=== PATIENT | male | born 1960 | race Caucasian/White ===

== ENCOUNTER 2016-09-08 19:13 | Emergency (ER) | payer MEDICARE, MEDICAID ==
[~2016-09-08] VITALS: Ht 185.4 cm; Wt 89.0 kg
[2016-09-08 19:15] VITALS: Ht 185.4 cm; Wt 89.0 kg
[2016-09-08] MEDS ORDERED: SOD CHLORIDE 0.9% 1,000 ML IV STA (19:37)
[2016-09-08] MEDS ORDERED: LORAZEPAM 2 MG INJ IV ONE (20:00)
[2016-09-08 20:20] LABS: POTASSIUM 3.9 mmol/L (3.5-5.1)
[2016-09-08 20:22] LABS: CREATININE 0.99 mg/dl (0.61-1.24)
[2016-09-08 20:23] LABS: CALCIUM 8.4 mg/dl (8.4-10.2)
[2016-09-08 21:43] LABS: ADD SCAN DIFF NO; BASOPHILS % 0.6 % (0.0-2.0); EOSINOPHILS % 0.1 % (0.0-7.0); HEMATOCRIT 47.8 % (42.0-52.0); HEMOGLOBIN 16.5 g/dl (14.0-18.0); LYMPHOCYTES # 4.7 10^3/ul (0.8-2.9); MEAN CORPUSCULAR HEMOGLOBIN 29.1 pg (29.0-33.0); MEAN CORPUSCULAR HGB CONC 34.5 g/dl (32.0-37.0); MEAN CORPUSCULAR VOLUME 84.3 fl (82.0-101.0); MEAN PLATELET VOLUME 9.8 fl (7.4-10.4); MONOCYTE # 0.3 10^3/ul (0.3-0.9); MONOCYTES % 4.9 % (0.0-11.0); NEUTROPHIL # 1.6 10^3/ul (1.6-7.5); NEUTROPHILS % 24.3 % (39.0-77.0); PLATELET COUNT 296 10^3/UL (140-415); RED BLOOD COUNT 5.67 10^6/ul (4.70-6.10); RED CELL DISTRIBUTION WIDTH 13.2 % (11.5-14.5); WHITE BLOOD COUNT 6.7 10^3/ul (4.8-10.8)
[2016-09-08 21:49] LABS: ALBUMIN 4.4 g/dl (3.3-4.9)
[2016-09-08 21:51] LABS: BILIRUBIN,INDIRECT 0.3 mg/dl (0-1.1); BILIRUBIN,TOTAL 0.3 mg/dl (0.2-1.3)
[2016-09-08 21:52] LABS: ALANINE AMINOTRANSFERASE 34 IU/L (13-69); ALKALINE PHOSPHATASE 136 IU/L (42-121); ASPARTATE AMINO TRANSFERASE 54 IU/L (15-46); TOTAL PROTEIN 7.7 g/dl (6.1-8.1)
[2016-09-08 21:56] LABS: ACETAMINOPHEN < 10.0 ug/ml (10.0-30.0); SALICYLATE < 1.0 mg/dl (5.0-30.0)
[2016-09-08 22:07] LABS: ADD UMIC YES; URINE BILIRUBIN (Dip) NEGATIVE (NEGATIVE); URINE BLOOD (Dip) TRACE (NEGATIVE); URINE COLOR LT. YELLOW (YELLOW); URINE GLUCOSE (Dip) NEGATIVE (NEGATIVE); URINE KETONES (Dip) NEGATIVE (NEGATIVE); URINE LEUKOCYTE ESTERASE (Dip) NEGATIVE (NEGATIVE); URINE NITRITE (Dip) NEGATIVE (NEGATIVE); URINE TOTAL PROTEIN (Dip) NEGATIVE (NEGATIVE); URINE UROBILINOGEN (Dip) 0.2 E.U./dL (0.1-1.0)
[2016-09-08 22:14] LABS: URINE RBCS 0-2 /HPF (0)
[2016-09-08] MEDS ORDERED: DIPHENHYDRAMINE 25 MG CAP PO ONE (23:00)
[2016-09-08] MEDS ORDERED: IBUPROFEN 600 MG TAB PO ONE (23:00)
--- NOTE | 2016-09-08 23:00 | PSY ---
Date/Time of Note Date/Time of Note DATE: 09/08/16 TIME: 22:55 Psychiatric Subjective Eval Consent Pt consented to telemedicine: Yes Subjective Evaluation Patient location: emergency Chief Complaint: Binge drinking for a week Reason for consult: Binge drinking History of present illness "I tried to kill myself." Patient reports that his daughter was two weeks ago. He is happy for her but "she is my daughter." So, over the last week, he has been drinking hard alcohol in an effort to drink himself to . He reports a long history of depression. He has tried "all my life" to kill himself - including such things as jumping off high places and driving recklessly near trucks. He reports depression, anhedonia, sleep impairment, concentration and focus issues and suicidal thoughts. He has medications for depression (does not know names) but does not take them. Patient denies hallucinations and delusions. Past psychiatric history Past psychiatric admissions. Many past suicide attempts. Hospitalization: yes Family History Denies Medical history Reports spinal fracture in past. Substance Abuse Substance abuse history: Yes (Alcohol) Social History Marital status: single Level of education: N/A DPA/Conservatorship: No Occupation/Long-Term: N/A - pt still somehwat intoxicated and overwhelmed. Did not address these Psychiatric Objective Eval Mental Status Examination: Appearance: Poor Hygiene, Disheveled Eye Contact: Fair Psychomotor Activity: Normal Behavior: Cooperative Speech: Soft, Slurred AFFECT: Libile Mood: Depressed Though Process: Linear Thought Content: Normal Suicidal: Yes Homicidal: No On 72 hour hold: No Orientation: x3 Cognition: Alert Insight: Impared Judgement: Impared Laboratory Results Laboratory Tests Test 09/08/16 19:55 09/08/16 21:45 White Blood Count 6.710^3/ul Red Blood Count 5.6710^6/ul Hemoglobin 16.5g/dl Hematocrit 47.8% Mean Corpuscular Volume 84.3fl Mean Corpuscular Hemoglobin 29.1pg Mean Corpuscular Hemoglobin Concent 34.5g/dl Red Cell Distribution Width 13.2% Platelet Count 75717^3/UL Mean Platelet Volume 9.8fl Neutrophils % 24.3% Lymphocytes % 70.0% Monocytes % 4.9% Eosinophils % 0.1% Basophils % 0.6% Nucleated Red Blood Cells % 0.0/100WBC Neutrophils # 1.610^3/ul Lymphocytes # 4.710^3/ul Monocytes # 0.310^3/ul Eosinophils # 0.010^3/ul Basophils # 0.010^3/ul Nucleated Red Blood Cells # 0.010^3/ul Sodium Level 145mmol/L Potassium Level 3.9mmol/L Chloride Level 101mmol/L Carbon Dioxide Level 27mmol/L Anion Gap 21 Blood Urea Nitrogen 14mg/dl Creatinine 0.99mg/dl Glucose Level 122mg/dl Calcium Level 8.4mg/dl Magnesium Level 2.0mg/dl Total Bilirubin 0.3mg/dl Direct Bilirubin 0.00mg/dl Indirect Bilirubin 0.3mg/dl Aspartate Amino Transf (AST/SGOT) 54IU/L Alanine Aminotransferase (ALT/SGPT) 34IU/L Alkaline Phosphatase 136IU/L Total Protein 7.7g/dl Albumin 4.4g/dl Salicylates Level < 1.0mg/dl Acetaminophen Level < 10.0ug/ml Ethyl Alcohol Level 421.0mg/dl Urine Color LT. YELLOW Urine Clarity CLEAR Urine pH 6.0 Urine Specific [place] <=1.005 Urine Ketones NEGATIVE Urine Nitrite NEGATIVE Urine Bilirubin NEGATIVE Urine Urobilinogen 0.2 E.U./dL Urine Leukocyte Esterase NEGATIVE Urine Microscopic RBC 0-2/HPF Urine Microscopic WBC NONE SEEN/HPF Urine Hemoglobin TRACE Urine Glucose NEGATIVE% Urine Total Protein NEGATIVE Assessment and Plan Assessment/Diagnosis [place] I: Major Depressive Disorder, Recurrent, Severe, Alcohol Use Disorder Recommendation/Plan Medication Management Per inpatient psychiatry Psychotherapy N/A Pt. Caregiver/Family Education N/A Follow-up/Disposition Recommend 5150 for danger to self and transfer to inpatient psychiatry. Patient is acutely suicidal. 5150 Recommendation: Shi IMER Jeter Sep 08, 2016 23:00
[2016-09-08 23:42] LABS: BARBITURATES Negative (NEGATIVE); BENZODIAZEPINES Negative (NEGATIVE); CANNABINOIDS Negative (NEGATIVE); COCAINE Negative (NEGATIVE); OPIATES Negative (NEGATIVE)
--- NOTE | 2016-09-09 00:32 | ERD ---
ER Documentation Chief Complaint Date/Time DATE: 09/09/16 TIME: 00:28 Chief Complaint Binge drinking for a week HPI 55-year-old male presented emergency room with his daughter stating that he had been drinking for a week straight and wanted help. Stated he did have some nausea and felt very anxious. He denies any physical pain. Denies any recent trauma. This of drinking different kinds of alcohol today. He would not quantify. Denies any other medical problems and does not have a primary care doctor. ROS All systems reviewed and are negative except as per history of present illness. PMhx/Soc Medical and Surgical Hx: pt denies Medical Hx, pt denies Surgical Hx Hx Miscellaneous Medical Probl: Yes (etoh) Hx Alcohol Use: Yes (daily) Hx Substance Use: No Hx Tobacco Use: No Smoking Status: Never smoker Physical Exam Vitals Vital Signs Date Time Temp Pulse Resp B/P Pulse Ox O2 Delivery O2 Flow Rate FiO2 09/08/16 20:56 84 18 133/88 95 Room Air 09/08/16 19:15 98.7 133 24 132/92 97 Physical Exam Const: [] No acute distress Head: Atraumatic Eyes: Normal Conjunctiva ENT: Normal External Ears, Nose and Mouth. Neck: Full range of motion..~ No meningismus. Resp: Clear to auscultation bilaterally Cardio: Regular mild tachycardia, no murmurs Abd: Soft, non tender, non distended. Normal bowel sounds Skin: No petechiae or rashes Back: No midline or flank tenderness Ext: No cyanosis, or edema Neur: Awake and alert and oriented 3, slightly slurred speech, cranial nerves II through XII intact, no focal deficits Psych: Normal Mood and Affect Result Diagram: 09/08/16195409/08/161954 Results 24 hrs Laboratory Tests Test 09/08/16 19:55 09/08/16 21:45 09/08/16 21:46 White Blood Count 6.710^3/ul Red Blood Count 5.6710^6/ul Hemoglobin 16.5g/dl Hematocrit 47.8% Mean Corpuscular Volume 84.3fl Mean Corpuscular Hemoglobin 29.1pg Mean Corpuscular Hemoglobin Concent 34.5g/dl Red Cell Distribution Width 13.2% Platelet Count 78039^3/UL Mean Platelet Volume 9.8fl Neutrophils % 24.3% Lymphocytes % 70.0% Monocytes % 4.9% Eosinophils % 0.1% Basophils % 0.6% Nucleated Red Blood Cells % 0.0/100WBC Neutrophils # 1.610^3/ul Lymphocytes # 4.710^3/ul Monocytes # 0.310^3/ul Eosinophils # 0.010^3/ul Basophils # 0.010^3/ul Nucleated Red Blood Cells # 0.010^3/ul Sodium Level 145mmol/L Potassium Level 3.9mmol/L Chloride Level 101mmol/L Carbon Dioxide Level 27mmol/L Anion Gap 21 Blood Urea Nitrogen 14mg/dl Creatinine 0.99mg/dl Glucose Level 122mg/dl Calcium Level 8.4mg/dl Magnesium Level 2.0mg/dl Total Bilirubin 0.3mg/dl Direct Bilirubin 0.00mg/dl Indirect Bilirubin 0.3mg/dl Aspartate Amino Transf (AST/SGOT) 54IU/L Alanine Aminotransferase (ALT/SGPT) 34IU/L Alkaline Phosphatase 136IU/L Total Protein 7.7g/dl Albumin 4.4g/dl Salicylates Level < 1.0mg/dl Acetaminophen Level < 10.0ug/ml Ethyl Alcohol Level 421.0mg/dl Urine Color LT. YELLOW Urine Clarity CLEAR Urine pH 6.0 Urine Specific [place] <=1.005 Urine Ketones NEGATIVE Urine Nitrite NEGATIVE Urine Bilirubin NEGATIVE Urine Urobilinogen 0.2 E.U./dL Urine Leukocyte Esterase NEGATIVE Urine Microscopic RBC 0-2/HPF Urine Microscopic WBC NONE SEEN/HPF Urine Hemoglobin TRACE Urine Glucose NEGATIVE% Urine Total Protein NEGATIVE Urine Opiates Screen Negative Urine Barbiturates Negative Urine Amphetamines Screen Negative Urine Benzodiazepines Screen Negative Urine Cocaine Screen Negative Urine Cannabinoids Negative Current Medications Medications (Trade) Dose Ordered Sig/Tessa Route PRN Reason Start Time Stop Time Status Last Admin Dose Admin Sodium Chloride (NS) 1,000 ml @ 1,000 mls/hr Q1H STAT IV 09/08/16 19:37 09/08/16 20:36 DC 09/08/16 19:57 Lorazepam (Ativan) 1 mg ONCE ONCE IV 09/08/16 20:00 09/08/16 20:01 DC 09/08/16 19:57 Diphenhydramine HCl (Benadryl) 25 mg ONCE ONCE PO 09/08/16 23:00 09/08/16 23:01 DC 09/08/16 23:43 Ibuprofen (Motrin) 600 mg ONCE ONCE PO 09/08/16 23:00 09/08/16 23:01 DC 09/08/16 22:59 Procedures/MDM This patient stated he been drinking for an entire week straight performed a metabolic panel including magnesium to look for any signs of electrolyte imbalances. I also gave him a liter of normal saline and 1 mg of Ativan. He was feeling better after this current his own admission. He then stated that he was feeling suicidal. Rest of the workup was performed for psychiatric admission. Patient's on-call was 421. Total psychiatrist evaluated him anyway and recommended a 5150 hold. I had expected that perhaps the patient was not extremely intoxicated and may not feel suicidal anymore. He will be evaluated by PMNSamuel T in the morning as well. Spoke at length with his daughter with like to be notified when he is to be transferred. Patient is currently on suicide precautions with a one-to-one sitter. Departure Diagnosis: Primary Impression: Alcoholic intoxication Additional Impression: Suicidal ideation Condition: Stable ANASTASIA ONEAL DO Sep 09, 2016 00:32
[2016-09-09] MEDS ORDERED: ACETAMINOPHEN 325 MG TAB PO ONE (01:30)
[2016-09-09 05:46] VITALS: TEMP 98.4
[2016-09-09] MEDS ORDERED: LORAZEPAM 1 MG TAB PO ONE (08:00)
[2016-09-09] MEDS ORDERED: HYDROCODONE/APAP (5/325) TAB PO ONE (12:30)
--- NOTE | 2016-09-09 16:43 | PN ---
Date/Time of Note Date/Time of Note DATE: 09/09/16 TIME: 16:34 Subjective 24 Hr Interval Summary Free Text/Dictation Re-evaluation - Per report, patient is sober now and appears more stable. Patient reports feeling much better. He states he is not suicidal. He thinks the main issue is his injury in 2002 that has reduced his ability to function. He reports that he goes months without drinking but then binge drinks. He had been binging for about 1-2 weeks prior to coming to the ER. Patient reports his mood is "positive." He states he does not want to kill himself. He feels better and is ready to go home. Exam/Review of Systems Vital Signs Vitals Vital Signs Date Time Temp Pulse Resp B/P Pulse Ox O2 Delivery O2 Flow Rate FiO2 09/09/16 15:05 74 118/69 99 Room Air 09/09/16 05:46 98.4 09/09/16 02:20 17 Exam Pt is alert and oriented. Made good and appropriate eye contact. His speech is spontaneous, normo-productive without pressure or latency. He is not slurring his words. His affect is mood congruent. He is no longer labile. Thought process is LCGD. No evidence of hallucinations or delusions. Insight and judgment are fair. Results Result Diagram: 09/08/16195409/08/161954 Results 24 hrs Laboratory Tests Test 09/08/16 19:55 09/08/16 21:45 09/08/16 21:46 White Blood Count 6.7 Red Blood Count 5.67 Hemoglobin 16.5 Hematocrit 47.8 Mean Corpuscular Volume 84.3 Mean Corpuscular Hemoglobin 29.1 Mean Corpuscular Hemoglobin Concent 34.5 Red Cell Distribution Width 13.2 Platelet Count 296 Mean Platelet Volume 9.8 Neutrophils % 24.3 L Lymphocytes % 70.0 H Monocytes % 4.9 Eosinophils % 0.1 Basophils % 0.6 Nucleated Red Blood Cells % 0.0 Neutrophils # 1.6 Lymphocytes # 4.7 H Monocytes # 0.3 Eosinophils # 0.0 Basophils # 0.0 Nucleated Red Blood Cells # 0.0 Sodium Level 145 H Potassium Level 3.9 Chloride Level 101 Carbon Dioxide Level 27 Anion Gap 21 H Blood Urea Nitrogen 14 Creatinine 0.99 Glucose Level 122 Calcium Level 8.4 Magnesium Level 2.0 Total Bilirubin 0.3 Direct Bilirubin 0.00 Indirect Bilirubin 0.3 Aspartate Amino Transf (AST/SGOT) 54 H Alanine Aminotransferase (ALT/SGPT) 34 Alkaline Phosphatase 136 H Total Protein 7.7 Albumin 4.4 Salicylates Level < 1.0 L Acetaminophen Level < 10.0 L Ethyl Alcohol Level 421.0 Urine Color LT. YELLOW Urine Clarity CLEAR Urine pH 6.0 Urine Specific [place] <=1.005 L Urine Ketones NEGATIVE Urine Nitrite NEGATIVE Urine Bilirubin NEGATIVE Urine Urobilinogen 0.2 E.U./dL Urine Leukocyte Esterase NEGATIVE Urine Microscopic RBC 0-2 Urine Microscopic WBC NONE SEEN Urine Hemoglobin TRACE Urine Glucose NEGATIVE Urine Total Protein NEGATIVE Urine Opiates Screen Negative Urine Barbiturates Negative Urine Amphetamines Screen Negative Urine Benzodiazepines Screen Negative Urine Cocaine Screen Negative Urine Cannabinoids Negative IMER BEASLEY Sep 09, 2016 16:42
[2016-09-09 17:01] VITALS: BP 128/79; PULSE 76; RESP 16
== END 2016-09-09 17:23 | disposition home or self-care (01) ==
LOC: E/R 19:13
DX: F10.129 Alcohol abuse with intoxication, unspecified (principal); R45.851 Suicidal ideations
CPT/HCPCS: 80048; 80076; 80306; 80307; 81001; 83735; 85025; J2060; J7030; 36415; 81003; 96374

== ENCOUNTER 2016-10-27 14:38 | Emergency (ER) | payer MEDICARE, MEDICAID ==
[~2016-10-27] VITALS: Ht 188 cm; Wt 92.0 kg
[2016-10-27 14:43] VITALS: Ht 188 cm; Wt 92.0 kg
[2016-10-27 15:46] VITALS: PULSE 108
--- NOTE | 2016-10-27 15:49 | ERD ---
ER Documentation Chief Complaint Date/Time DATE: 10/27/16 TIME: 15:47 Chief Complaint ETOH INTOXICATION HPI 55-year-old male who presents to the emergency room with a family member with their concern for his drinking problem. The patient drinks regularly. His last drink was several hours ago. The family is concerned that he is drinking too much and is not motivated to get help. The family is looking for help. The patient denies any hematemesis or melena, no abdominal pain falls or head injury. He denies any history of seizure when he stops drinking. ROS All systems reviewed and are negative except as per history of present illness. Allergies Allergies: Coded Allergies: No Known Drug Allergies (Verified Allergy, Unknown, 09/09/16) PMhx/Soc Hx Miscellaneous Medical Probl: Yes (etoh) Hx Alcohol Use: Yes (daily) Hx Substance Use: No Hx Tobacco Use: No Smoking Status: Never smoker FmHx Family History: No diabetes Physical Exam Vitals Vital Signs Date Time Temp Pulse Resp B/P Pulse Ox O2 Delivery O2 Flow Rate FiO2 10/27/16 15:46 108 10/27/16 14:43 99.1 122 18 145/77 98 Physical Exam General: Slightly disheveled and smells of alcohol but conversive, ambulatory Head: Normocephalic, atraumatic. Eyes: Pupils equally reactive, EOM intact ENT: Moist mucous membranes Neck: Supple, no lymphadenopathy Respiratory: Lungs clear bilaterally, no distress Cardiovascular: Slight tachycardia, no murmurs, rubs, or gallops Abdominal: Soft, non-tender, non-distended, no peritoneal signs : Deferred MSK: No edema, no unilateral swelling, 5/5 strength Neurologic: Alert and oriented, moving all extremities, normal speech, no focal weakness, no cerebellar signs Skin: No rash Psych: Normal mood Procedures/MDM The patient presents with alcohol abuse issues. He has slight tachycardia but no other overt signs of acute alcohol withdrawal. I discussed outpatient Librium however the family members very concerned that the patient will continue to drink. Given this risk I believe the risks outweigh the benefits of this medication. The patient's heart rate improved he has no significant hypertension or tremor in the emergency room. I do not believe that benzodiazepines are warranted given his last drink was only several hours ago. His secondary social studies teacher was consulted to provided the family with resources and information. They will attempt to find inpatient placement today. I discussed return precautions including complications such as GI bleed or withdrawal symptoms. The patient and family member discussed understanding. At this time the patient will be discharged. We discussed follow up with the patient's primary care doctor within 24 to 48 hours as needed. We also discussed return to the emergency room for worsening symptoms or worsening condition. Outpatient referral: Detox Departure Diagnosis: Primary Impression: Alcohol abuse Condition: Stable Patient Instructions: Alcohol Abuse Referrals: [facility] YOU HAVE RECEIVED A MEDICAL SCREENING EXAM AND THE RESULTS INDICATE THAT YOU DO NOT HAVE A CONDITION THAT REQUIRES URGENT TREATMENT IN THE EMERGENCY DEPARTMENT. FURTHER EVALUATION AND TREATMENT OF YOUR CONDITION CAN WAIT UNTIL YOU ARE SEEN IN YOUR DOCTORS OFFICE WITHIN THE NEXT 1-2 DAYS. IT IS YOUR RESPONSIBILITY TO MAKE AN APPOINTMENT FOR FOLOW-UP CARE. IF YOU HAVE A PRIMARY DOCTOR --you should call your primary doctor and schedule an appointment IF YOU DO NOT HAVE A PRIMARY DOCTOR YOU CAN CALL OUR PHYSICIAN REFERRAL HOTLINE AT IF YOU CAN NOT AFFORD TO SEE A PHYSICIAN YOU CAN CHOSE FROM THE FOLLOWING [facility] [address] [facility]. [facility] [address] [facility] [address] [facility] [address] [facility] [facility] [address] [facility]. [facility]. [address] [facility] YOU HAVE RECEIVED A MEDICAL SCREENING EXAM AND THE RESULTS INDICATE THAT YOU DO NOT HAVE A CONDITION THAT REQUIRES URGENT TREATMENT IN THE EMERGENCY DEPARTMENT. FURTHER EVALUATION AND TREATMENT OF YOUR CONDITION CAN WAIT UNTIL YOU ARE SEEN IN YOUR DOCTORS OFFICE WITHIN THE NEXT 1-2 DAYS. IT IS YOUR RESPONSIBILITY TO MAKE AN APPOINTMENT FOR FOLOW-UP CARE. IF YOU HAVE A PRIMARY DOCTOR --you should call your primary doctor and schedule and appointment IF YOU DO NOT HAVE A PRIMARY DOCTOR YOU CAN CALL OUR PHYSICIAN REFERRAL HOTLINE AT . IF YOU CAN NOT AFFORD TO SEE A PHYSICIAN YOU CAN CHOSE FROM THE FOLLOWING [facility]: [facility] [address] [place] [address] [facility] [address] [place] [address] FOR[facility]LY [facility] + [facility] [address] [place] [address] Additional Instructions: Call your primary care doctor TOMORROW for an appointment during the next 1 WEEK.Tell the audio visual secretary that you were referred from this facility.See the doctor sooner or return here if your condition worsens before your appointment time. MAYANK CLARKE MD Oct 27, 2016 15:49
== END 2016-10-27 17:09 | disposition home or self-care (01) ==
LOC: E/R 14:38
DX: F10.10 Alcohol abuse, uncomplicated (principal); R40.2142 Coma scale, eyes open, spontaneous, at arrival to emergency department; R40.2252 Coma scale, best verbal response, oriented, at arrival to emergency department; R40.2362 Coma scale, best motor response, obeys commands, at arrival to emergency department
CPT/HCPCS: 99282

== ENCOUNTER 2016-10-29 16:02 | Emergency (ER) | payer MEDICARE, MEDICAID ==
[~2016-10-29] VITALS: Ht 185.4 cm; Wt 86.5 kg
[2016-10-29 16:12] VITALS: Ht 185.4 cm; Wt 86.5 kg
[2016-10-29] MEDS ORDERED: ONDANSETRON (ODT) 4 MG TAB ODT STA (18:41)
[2016-10-29] MEDS ORDERED: CHLORDIAZEPOXIDE 25 MG CAP PO ONE (19:00)
[2016-10-29] MEDS ORDERED: LORAZEPAM 2 MG INJ IM ONE (19:00)
[2016-10-29] MEDS ORDERED: ONDA-43 PO (19:12)
[2016-10-29] MEDS ORDERED: CHLO25CA9 PO (19:13)
[2016-10-29] MEDS ORDERED: METO10TA92 PO (19:13)
--- NOTE | 2016-10-29 19:22 | ERD ---
ER Documentation Chief Complaint Date/Time DATE: 10/29/16 TIME: 19:17 Chief Complaint ALCOHOL WITHDRAWALS - ACTIVELY VOMITTING HPI This is a 55-year-old male presents to the ER stating that he has been shaking and vomiting for the last 2 days. Patient went on an alcohol binge over the last 2 weeks and stopped drinking alcohol yesterday morning. Vomiting is nonbilious nonbloody. He does not have any diarrhea. She has not had any seizures. Patient does have an appointment at [facility] on Saturday for alcohol rehab program. She has not had any fevers or chills. He denies any chest pain or shortness of breath. ROS 12 point review of systems was done, all negative except per HPI. Medications Home Meds Active Scripts Chlordiazepoxide* (Chlordiazepoxide*) 25 Mg Capsule, 25 MG PO TID Y for TID for 2 Days, #14 CAP Prov:ESCOBAR CORADO 10/29/16 Metoclopramide* (Reglan*) 10 Mg Tablet, 10 MG PO Q6 Y for NAUSEA AND/OR VOMITING , #20 TAB Prov:ESCOBAR CORADO 10/29/16 Ondansetron Hcl* (Zofran*) 4 Mg Tab, 4 MG PO Q4H Y for NAUSEA AND OR VOMITING for 10 Days, TAB Prov:ESCOBAR CORADO 10/29/16 Allergies Allergies: Coded Allergies: No Known Drug Allergies (Verified Allergy, Unknown, 09/09/16) PMhx/Soc Hx Miscellaneous Medical Probl: Yes (etoh) Hx Alcohol Use: Yes (daily) Hx Substance Use: No Hx Tobacco Use: No Smoking Status: Never smoker Physical Exam Vitals Vital Signs Date Time Temp Pulse Resp B/P Pulse Ox O2 Delivery O2 Flow Rate FiO2 10/29/16 16:12 98.1 96 18 146/84 98 Physical Exam GENERAL: The patient is well developed and appropriate for usual state of health , in no apparent distress. HEENT: Atraumatic. CHEST: Clear to auscultation bilaterally. There are no rales, wheezes or rhonchi. HEART: Regular rate and rhythm. No murmurs, clicks, rubs or gallops. ABDOMEN: Soft, nontender and nondistended. BACK: No midline or flank tenderness. NEURO: Alert and oriented SKIN: The skin is warm and dry. Results 24 hrs Current Medications Medications (Trade) Dose Ordered Sig/Tessa Route PRN Reason Start Time Stop Time Status Last Admin Dose Admin Ondansetron HCl (Zofran Odt) 4 mg ONCE STAT ODT 10/29/16 18:41 10/29/16 18:45 DC 10/29/16 18:57 Lorazepam (Ativan) 1 mg ONCE ONCE IM 10/29/16 19:00 10/29/16 19:01 DC 10/29/16 18:57 Chlordiazepoxide (Librium) 100 mg ONCE ONCE PO 10/29/16 19:00 10/29/16 19:01 DC 10/29/16 18:57 Procedures/MDM This patient was examined by myself and by Dr. Tucker. At this patient is not seizing, his vital signs are stable. We had a thorough discussion with the family and patient has good follow-up for a rehab program on Saturday. At this time patient does wish to try Librium. He was given Zofran, Ativan and Librium here in the ER. He will be given a soft taper of Librium for home. Patient is afebrile, well-appearing able to tolerate fluids by mouth. He is stable for outpatient follow-up. He needs to follow-up with his primary care doctor within 1-2. My medical decision making was shared with the patient he understands and agrees with plan. Departure Diagnosis: Primary Impression: Alcohol abuse Condition: Stable Patient Instructions: Alcohol Abuse Additional Instructions: Llame al doctor MAANA y alena sylvester SIMON PARA DENTRO DE 1-2 ELONE.Dgale a la secretaria que nosotros le instruimos hacer esta simon.Avise o llame si morrow condicin se empeora antes de la simon. Regresa aqui si peor o no mejor. ESCOBAR CORADO Oct 29, 2016 19:22
[2016-10-29 19:40] VITALS: BP 145/93; PULSE 98; RESP 12; TEMP 98.2
== END 2016-10-29 19:42 | disposition home or self-care (01) ==
LOC: FTE 16:02
DX: F10.10 Alcohol abuse, uncomplicated (principal)
CPT/HCPCS: 96372; 99284; J2060